=== PATIENT | male | born 1980 | race Caucasian/White ===

== ENCOUNTER 2022-06-11 13:00 | Emergency (ER) | payer MEDICARE, MEDICAID, SELFPAY ==
--- NOTE | 2022-06-11 13:44 | PC.NURSE ---
wound cleaned with saline, wet saline gauze applied over laceration, wrapped in coban. NO active bleeding at time of assessment of wound. Cap refill wnl. Pt advised no open rooms in ER at this time, will place pt in room as soon as one is available. Pt verbalized understanding.
[2022-06-11 14:39] VITALS: BP 133/91; PULSE 87; RESP 18; TEMP 36.8; O2SAT 100; BMI 24.0
[2022-06-11 15:00] VITALS: BP 138/87; PULSE 85; RESP 18; O2SAT 100
--- NOTE | 2022-06-11 15:27 | [facility].EDGENADL ---
Discharge Plan Referrals Follow up/Referrals: Provider,Referral, [Primary Care Provider] - See instructions Clinical Impressions Clinical Impression: Laceration Discharge ED Provider: Jam Dumont General Adult HPI General Stated complaint: AO 06/11/22 1:00 Moving refrigerator cut RT thumb Time Seen by Provider: 06/11/22 15:00 History of Present Illness HPI narrative: Patient is a 41-year-old gentleman with no pertinent past medical history presents emergency department for evaluation of a laceration. Patient cut his dorsal hand on a piece of a refrigerator prior to arrival. Denies paresthesias, other traumatic complaints. Tdap is up-to-date. No other acute complaints at this time. PFSH PFS Social History Smoking Status: Never smoker alcohol intake: current current occupational status: employed ROS Obtained: Yes All systems reviewed & no additional complaints except as documented Physical Exam General General appearance: alert and in no apparent distress Head Head exam: atraumatic and normocephalic Eye Eye exam: Present PERRL and EOMI ENT ENT exam: Present mucous membranes moist Neck Neck exam: Present normal inspection Chest Chest inspection: Present normal inspection and symmetric chest wall rise Respiratory Respiratory exam: Present normal lung sounds bilaterally; Absent respiratory distress Cardiovascular Cardiovascular exam: Present regular rate and normal rhythm Abdominal Exam Abdominal exam: Present soft; Absent tenderness Extremities Exam Extremities exam: Present normal inspection Neurological Exam Neurological exam: Present alert and oriented X3 Psychiatric Psychiatric exam: Present normal affect Skin Skin exam: Present warm, dry and other (3 cm jagged laceration that is hemostatic over the right dorsal hand between the first and second metacarpals. No tendon involvement, range of motion is preserved in all joints of the hand, distal capillary refill preserved, sensation intact light touch distally.) Medical Decision Making Jcarlos Inquiry Pt receiving controlled substance: No Medical Decision Narrative: Patient is a 41-year-old male with past medical history described below presents emergency department for evaluation of laceration of the right hand. Patient is distally neurovascularly intact, no concern for tendon involvement or arterial hemorrhage. Wound will undergo primary repair. Tdap was updated prior to arrival. Unfortunately prior to wound undergoing primary repair patient eloped from the emergency department. It was attempted to convince him to come back for primary repair however he was not interested. He was told that he could come back should he wish to continue his evaluation. Critical Care Time Critical Care Time Attestation: The high probability of a clinically significant, sudden or life threatening deterioration of the [] system(s) required my full and direct attention, intervention and personal management. The aggregate critical care time was [] minutes. This time is in addition to time spent performing reported procedures but includes the following: [] Data Review and interpretation [] Patient assessment and monitoring of vital signs [] Documentation [] Medication orders and management
[2022-06-11 15:30] VITALS: BP 140/89; PULSE 89; RESP 18; O2SAT 100
--- NOTE | 2022-06-11 15:40 | PC.NURSE ---
Pt called out asking to see the doctor, explained that the doctor had a few critical pts that he was finishing with and then he would be to see the pt.
--- NOTE | 2022-06-11 15:45 | PC.NURSE ---
PT got up and walked out of ER. Went outside to let the pt know that the doctor states he will be in in a few after he finishes a few critical pts up. PT states I have been her for 5 hours and this is the worst hospital ever . Got in his truck and left.
[2022-06-11 16:31] VITALS: BP 0/0; PULSE 0; RESP 0; TEMP -17.7; TEMP 0; O2SAT 0
== END 2022-06-11 15:48 | disposition left against medical advice (07) ==
PROVIDERS: Emergency Provider Emergency Medicine
DX: S61.011A Laceration without foreign body of right thumb without damage to nail, initial encounter (principal); Z53.21 Procedure and treatment not carried out due to patient leaving prior to being seen by health care provider
CPT/HCPCS: 99281